=== PATIENT | female | born 1990 | race Caucasian/White ===

== ENCOUNTER 2017-05-06 10:50 | Emergency (ER) | payer MEDICAID, OTHER ==
[~2017-05-06] VITALS: Ht 157.5 cm; Wt 64.5 kg
[~2017-05-06 10:50] MED LIST: MOTRIN PRN PAIN
[2017-05-06 11:17] VITALS: BP 105/68
--- NOTE | 2017-05-06 11:25 | NUR ---
PATIENT PRESENTS TO ED WITH C/O GENERAL BODYACHES X YESTERDAY---SEVERE SORENESS HAD LEFT SIDED STIFF NECK MONDAY---SEEN AT URGENT CARE MONDAY NIGHT RX-DECADRON IM, TORADOL IM---SENT HOME WITH MUSCLE RELAXANT /TYLENOL 3 HX---DENIES RX---NONE; DENIES N/V/D; SKIN IS PINK/WARM/DRY; AAOX4 WITH EVEN AND STEADY GAIT; LUNGS CLEAR BL; HR EVEN AND REGULAR; PT DENIES ANY FEVER, CP, SOB, OR COUGH AT THIS TIME; PATIENT STATES PAIN OF 7/10 AT THIS TIME; VSS; PATIENT POSITIONED FOR COMFORT; HOB ELEVATED; BEDRAILS UP X2; BED DOWN. ER MD MADE AWARE OF PT STATUS.
[2017-05-06] MEDS ORDERED: NACL 0.9% 1,000 ML IV SCH (12:39)
[2017-05-06] MEDS ORDERED: KETOROLAC 30 MG/ML VIAL IVP ONE (12:45)
[2017-05-06 13:01] LABS: BASOPHILS # (AUTO) 0.2 K/uL (0.00-0.22); BASOPHILS % (AUTO) 2.7 % (0.0-2.0); EOSINOPHILS # (AUTO) 0.2 K/uL (0-0.4); EOSINOPHILS % (AUTO) 2.8 % (0.0-4.0); HEMATOCRIT 37.3 % (36-48); HEMOGLOBIN 12.3 g/dL (12.0-16.0); LYMPHOCYTES # (AUTO) 2.3 K/uL (2.5-16.5); LYMPHOCYTES % (AUTO) 36.4 % (20.5-51.1); MEAN CORPUSCULAR HEMOGLOBIN 28 pg (27-31); MEAN CORPUSCULAR HGB CONC 33 g/dL (33-37); MEAN CORPUSCULAR VOLUME 86 fL (80-94); MONOCYTES # (AUTO) 0.5 K/uL (0.8-1.0); MONOCYTES % (AUTO) 7.5 % (1.7-9.3); NEUTROPHILS # (AUTO) 3.1 K/uL (1.8-7.7); NEUTROPHILS % (AUTO) 50.6 % (42.2-75.2); PLATELET COUNT (AUTO) 200 K/uL (140-450); RED BLOOD CELL COUNT(AUTO) 4.33 MIL/uL (4.20-5.40); RED CELL DISTRIBUTION WIDTH 12.9 % (11.6-13.7); WHITE BLOOD COUNT (AUTO) 6.3 K/uL (4.8-10.8)
[2017-05-06 13:17] LABS: PARTIAL THROMBOPLASTIN TIME 26.3 secs (22-35.6); PROTHROMBIN TIME 10.6 secs (10.8-13.4)
[2017-05-06 13:20] LABS: CALCIUM 8.4 mg/dL (8.5-10.1); CARBON DIOXIDE 30.3 mmol/L (21-32); CREATININE 0.7 mg/dL (0.6-1.3); POTASSIUM 3.3 mmol/L (3.5-5.1)
[2017-05-06 13:31] LABS: ALBUMIN 3.6 g/dL (3.4-5.0); TOTAL BILIRUBIN 0.2 mg/dL (0.0-1.0)
[2017-05-06 13:39] LABS: D-DIMER < 100 ng/ml (0-400)
[2017-05-06 14:12] VITALS: BP 112/62
--- NOTE | 2017-05-06 14:12 | NUR ---
Patient discharged with v/s stable. Written and verbal after care instructions given and explained. Patient alert, oriented and verbalized understanding of instructions. Ambulatory with steady gait. All questions addressed prior to discharge. ID band removed. Patient advised to follow up with PMD. Rx of NAPROSYN, ATIVAN given. Patient educated on indication of medication including possible reaction and side effects. Opportunity to ask questions provided and answered.
[2017-05-06 14:53] LABS: APPEARANCE,URINE CLEAR (CLEAR); BILIRUBIN,URINE NEGATIVE (NEGATIVE); BLOOD, URINE 2+ (NEGATIVE); COLOR,URINE YELLOW (YELLOW); LEUKOCYTE ESTERASE ,URINE NEGATIVE (NEGATIVE); NITRITE, URINE NEGATIVE (NEGATIVE); PROTEIN,URINE NEGATIVE (NEGATIVE); UGLUCOSE NEGATIVE (NEGATIVE); UROBILINOGEN,URINE 0.2 EU/dL (0.2 - 1)
[2017-05-06 15:08] LABS: RBC,URINE 3-10 (FEW) /HPF (0-5); WBC,URINE 0-5 (RARE) /HPF (0-5)
[2017-05-06 15:09] LABS: BACTERIA,URINE 0-2 (RARE) /HPF (None Seen)
== END 2017-05-06 14:12 | disposition home or self-care (01) ==
LOC: MED 10:50
DX: M79.1 Myalgia (principal); Z90.49 Acquired absence of other specified parts of digestive tract; F41.9 Anxiety disorder, unspecified
CPT/HCPCS: 36415; 71010; 80053; 81001; 81025; 82150; 82553; 83690; 83880; 84484; 85025; 85379; 85610; 85730; 87804; 93005; 96361; 96374; 99285; J1885; J7030; Q0092

== ENCOUNTER 2018-08-21 20:40 | Emergency (ER) | payer OTHER ==
[~2018-08-21] VITALS: Ht 154.9 cm; Wt 61.2 kg
[2018-08-21 20:43] VITALS: BP 100/63
--- NOTE | 2018-08-21 20:51 | NUR ---
PT AMBULATED TO BED 2 WITH VSS.
[2018-08-21 21:43] LABS: BASOPHILS % (AUTO) 0.4 % (0.0-2.0); EOSINOPHILS # (AUTO) 0.3 K/uL (0-0.4); EOSINOPHILS % (AUTO) 4.6 % (0.0-4.0); HEMATOCRIT 38.8 % (36-48); HEMOGLOBIN 12.9 g/dL (12.0-16.0); LYMPHOCYTES # (AUTO) 2.2 K/uL (2.5-16.5); LYMPHOCYTES % (AUTO) 31.9 % (20.5-51.1); MEAN CORPUSCULAR HEMOGLOBIN 29 pg (27-31); MEAN CORPUSCULAR HGB CONC 33 g/dL (33-37); MEAN CORPUSCULAR VOLUME 87.5 fL (80-94); MONOCYTES # (AUTO) 0.5 K/uL (0.8-1.0); MONOCYTES % (AUTO) 7.3 % (1.7-9.3); NEUTROPHILS # (AUTO) 3.9 K/uL (1.8-7.7); NEUTROPHILS % (AUTO) 55.8 % (42.2-75.2); PLATELET COUNT (AUTO) 207 K/uL (140-450); RED BLOOD CELL COUNT(AUTO) 4.44 MIL/uL (4.20-5.40); RED CELL DISTRIBUTION WIDTH 13.4 % (11.6-13.7)
--- NOTE | 2018-08-21 21:53 | NUR ---
PT BIB SELF C/O INTERMITTENT C/P FOR 1 WEEK RADIATING TO NECK/SHOULDER AREA. RR EVEN AND UNLABORED, BL BS CLEAR THOUGH OUT. C/P NON PROVOKED. PT STATES SHE FEELS TIGHTNESS TO STERNAL AREA RADIATING TO RT SHOULDER AND NECK . PT STATES PAIN ONLY LAST ABOUT 30 SEC-1 MIN. PAIN TODAY WAS WORSE SO PT WAS WORRIED AND CAME INTO ER. NO PMH
[2018-08-21 21:54] LABS: ANION GAP 10.2 (8-16); CARBON DIOXIDE 28.1 mmol/L (21-32); CREATININE 0.7 mg/dL (0.6-1.3); POTASSIUM 4.3 mmol/L (3.5-5.1)
[2018-08-21 21:59] LABS: ALBUMIN 3.7 g/dL (3.4-5.0); TOTAL BILIRUBIN 0.3 mg/dL (0.0-1.0)
--- NOTE | 2018-08-21 22:00 | NUR ---
PT LAYING IN BED, VSS, NO NEW NEEDS AT THIS TIME.
[2018-08-21 22:44] VITALS: BP 102/80
== END 2018-08-21 22:44 | disposition home or self-care (01) ==
LOC: MED 20:40
DX: R07.89 Other chest pain (principal); Z90.49 Acquired absence of other specified parts of digestive tract; Z79.1 Long term (current) use of non-steroidal anti-inflammatories (NSAID)
CPT/HCPCS: 36415; 71046; 80053; 81025; 84484; 85025; 93005; 99284

== ENCOUNTER 2019-09-10 17:37 | Emergency (ER) | payer OTHER ==
[~2019-09-10] VITALS: Ht 154.9 cm; Wt 57.3 kg
[2019-09-10 17:41] VITALS: BP 111/71
--- NOTE | 2019-09-10 17:51 | NUR ---
28 Y/O FEMALE PRESENTING WITH RUQ ABDOMINAL PAIN 8/10 SHARP X5 DAYS AND WORSENING. PER PT NKA. MEDICAL HX OF GALLBLADER REMOVAL 2010. NO RX, PER PATIENT ONLY IBUPROFEN AND ATIVAN PRN. NO N/V/D. SIDE RAIL X1. BOWEL SOUNDS NORMOACTIVE.
--- NOTE | 2019-09-10 18:00 | NUR ---
Dr. Baig is evaluating the patient at bedside.
[2019-09-10 18:13] VITALS: BP 111/71
--- NOTE | 2019-09-10 18:13 | NUR ---
Patient discharged with v/s stable. Written and verbal after care instructions given and explained. Patient alert, oriented and verbalized understanding of instructions. Ambulatory with steady gait. All questions addressed prior to discharge. ID band removed. Patient advised to follow up with PMD. Rx of PRILOSEC, NORCO given. Patient educated on indication of medication including possible reaction and side effects. Opportunity to ask questions provided and answered.
== END 2019-09-10 18:13 | disposition home or self-care (01) ==
LOC: MED 17:37
DX: R10.13 Epigastric pain (principal); Z90.49 Acquired absence of other specified parts of digestive tract; Z79.899 Other long term (current) drug therapy; Z98.890 Other specified postprocedural states
CPT/HCPCS: 81002; 81025; 99282; 99283

== ENCOUNTER 2020-04-15 15:10 | Emergency (ER) | payer OTHER ==
[~2020-04-15] VITALS: Ht 160 cm; Wt 59.0 kg
[2020-04-15 15:18] VITALS: BP 105/58
--- NOTE | 2020-04-15 15:23 | NUR ---
PT AMBULATED TO LOBBY
--- NOTE | 2020-04-15 16:12 | NUR ---
29 Y/O FEMALE FROM HOME C/O HEADACHE AND BODY ACHES X 3 DAYS. DENIES COUGH/SOB. RR EVEN AND UNLABORED. STATES SHE TOOK NAPROXEN FOR HEADACHE WITH NO RELIEF. VSS MEDHX: DENIES
[2020-04-15 16:19] VITALS: BP 105/58
--- NOTE | 2020-04-15 16:19 | NUR ---
Patient discharged with v/s stable. Written and verbal after care instructions given and explained. Patient alert, oriented and verbalized understanding of instructions. Ambulatory with steady gait. All questions addressed prior to discharge. ID band removed. Patient advised to follow up with PMD. Rx of NAPROSYN 500MG given. Patient educated on indication of medication including possible reaction and side effects. Opportunity to ask questions provided and answered.
== END 2020-04-15 16:19 | disposition home or self-care (01) ==
LOC: MED 15:10
DX: B34.9 Viral infection, unspecified (principal); Z20.828 Contact with and (suspected) exposure to other viral communicable diseases; Z79.899 Other long term (current) drug therapy
CPT/HCPCS: 99283; U0003